=== PATIENT | female | born 1985 | race Caucasian/White ===

== ENCOUNTER 2020-06-02 03:15 | Inpatient (IN) | payer MEDICAID, SELFPAY ==
[2020-06-02] VITALS (80 sets, daily range): BP systolic 114–187; BP diastolic 62–101; PULSE 62–97; RESP 16–18; TEMP 36.3–36.9; O2SAT 89–100; BMI 33.9
[2020-06-02] MEDS: Lactated Ringers 500 ML 999 ML IV (03:40)
[2020-06-02] MEDS: Mag Hydrox/Al Hydrox/Simeth 30 ML UDC PO (03:57)
[2020-06-02] MEDS: Lactated Ringers 1,000 ML 50 ML IV (04:15)
[2020-06-02 04:18] LABS: Absolute Lymphocyte Count 2.68 X10^3/uL (0.83-4.51); Absolute Neutrophil Count 6.5 X10^3/uL (2.0-7.7); Basophil# 0.03 X10^3/uL; Basophil% 0.3 % (0-1); Eosinophil# 0.56 X10^3/uL; Eosinophils% 5.4 % (0-5); Hematocrit 30.3 % (37-47); Hemoglobin 10.3 g/dL (12.0-15.0); Lymphocyte # 2.68 X10^3/ul (4.0); Lymphocyte % 25.7 % (19-41); Mean Corpuscular Hgb 29.6 pg (27.0-32.0); Mean Corpuscular Volume 87.1 fL (81-99); Mean Platelet Vol. 10.1 fl (6.2-12.0); Monocyte% 5.8 % (0-10); NRBC Flagged by Analyzer 0 % (0-5); Neutrophil # 6.51 X10^3/uL (2.7-7.7); Neutrophil % 62.4 % (47-70); Platelet Count 194 K/mm3 (150-450); RBC Distribution Width CV 12.5 % (11.6-14.6); RBC Distribution Width SD 39.1 fl (35.1-43.9); Red Blood Count 3.48 M/mm3 (4.2-5.4); White Blood Count 10.4 K/mm3 (4.4-11.0)
[2020-06-02] MEDS: Labetalol (Prefilled) 20 MG/4 ML IV (04:24)
--- NOTE | 2020-06-02 04:41 | HP.PCM_ITS ---
History Date of Admission: 06/02/20 Final MICHAEL: 06/24/20 Gestational age: 36 Weeks and 6 Days History of this : This is a 34 year-old, @ 36.6 weeks with SROM at home- in labor. On arrival was found to have elevated BPs- asymptomatic. pt does have h/o PRE E with previous pregnancies- on baby ASA. Allergies No Known Allergies Allergy (Verified 06/02/20 03:40) Home Medications: Home Medications Aspirin [Aspirin, Baby] 81 mg PO DAILY@0800 06/02/20 Vit,Calc76/Iron/Folic [Pnv 29-1 Tablet] 1 ea PO 06/02/20 Smoking Status: Never smoker Alcohol: None Substance Use Type: Sleep Aides Number of Fetus(es): 1 NST - FHR Rate Baby A Baseline: 140 Variability:: Moderate Accelerations:: 15 x 15 Decelerations:: None NST Reactive:: Yes FHR Category:: Category I Uterine Activity:: q2-4 History Past Pregnancies: Past Pregnancies Delivery Date Name GA/ Weeks Outcome Route Wt Sex Labor Length Anesthesia Delivery Location Provider FOB Expected Infant Delivery Method: Spontaneous Vaginal Review of Systems Eyes: Denies: Blurred vision HEENT: Denies: Difficulty Hearing, Hearing Changes Cardiovascular: Denies: Chest Pain Gastrointestinal: Reports: Abdominal Pain Physical Exam Vitals: Vital Signs Temp Pulse BP Pulse Ox 98.3 F 74 147/89 H 99 06/02/20 03:59 06/02/20 04:37 06/02/20 04:36 06/02/20 04:37 General: Alert, Oriented x3 Abdomen: Non Tender, Gravid Neurological: Cranial nerves II-XII grossly intact SILK SCREEN PAINTER: Normal external genitalia Estimated gestational size: Appropriate for gestational size Presentation: Cephalic Cervix Dilation (cm): 1 Effacement (%): 90 Assessment/Plan This is a 34 year-old, @ 36.6 wks- SROM in labor admit to l&D monitor fhr/toco anticipate augmentation if indicated BP- labetalol given responded well- PRE E labs sent. Will hold magnesium for now- BP was normal in office today and asymptomatic- likely elevated from pain.
[2020-06-02 04:59] LABS: Partial Thromboplast Time 23.8 Seconds (24.1-36.2); Prothrombin Time (Protime)PT. 12.7 SECONDS (11.7-14.9)
[2020-06-02 05:08] LABS: AST(SGOT) 18 U/L (15-37); Alanine Aminotransfer ALT/SGPT 15 U/L (13-56); Creatinine, Serum 0.94 mg/dL (0.55-1.02); EST Glomerular Filtration Rate 71 mL/min (>60); Est Glom Filt Rate - Afr Amer 86 mL/min (>60); Uric Acid 4.7 mg/dL (2.6-6.0)
[2020-06-02] MEDS: fentaNYL-bupivacaine (epidural) 100 ML BAG EPIDURAL (05:08)
[2020-06-02] MEDS: Oxytocin 30 units/NS 500 ml 30 UNITS/500 ML IV.SOLN 334 UNITS IV (06:08)
--- NOTE | 2020-06-02 06:17 | PCM.OPRPT ---
Vaginal Delivery Maternal Presentation: Active Labor, Spontaneous Rupture of Membranes Amniotic Membrane Rupture Type: Spontaneous at home Amniotic Fluid Description: Clear Final MICHAEL: 06/24/20 Gestational age: 36 Weeks and 6 Days Date of Procedure: 06/02/20 Pre-Operative Diagnosis: spontaneous ROM, labor Post-Operative Diagnosis: same, live female Surgery/ Procedure Performed: Spontaneous Vaginal Delivery Type of Anesthesia: Epidural Description of Procedure: of live female infant. Good maternal pushing efforts delivered head followed by gentle downward traction for delivery of anterior shoulder. was vigorous and placed on mother's chest for immediate skin the skin. Delayed cord clamping was performed. The placenta was then delivered intact without difficulty. Small oozing noted from the anterior aspect of the cervix at 12:00. A single [id number] suture using a 3-0 rapide. Presentation: Vertex Placental Delivery Description: Spontaneous Placenta Disposition: [facility] Cord Vessel Description: 3 Vessels Cord Entanglement: None Estimated Blood Loss: 250 Infant A gender: Female (1 minute): 9 (5 minute): 10 Episiotomy Description: None Laceration: None - small oozing from anterior aspect of cervix- figure of 8 with 3-0 rapide placed. No laceration appreciated. Medications given after delivery: IV Pitocin Complications: None
[2020-06-02 06:51] LABS: Protein, Urine (Random) 17.7 mg/dL (<11.9); Protein:Creat Ratio 203 mg/g CRE (0-200)
[2020-06-02] MEDS: 0.9% Saline Lock 10 ML Syringe IV (08:44)
--- NOTE | 2020-06-02 11:45 | NURSING ---
Dr. Galeano's nurse called to notify of last 3 BP's 158/89, 142/97, and 154/94.
[2020-06-02] MEDS: Ibuprofen 600 MG Tablet PO ×2 (12:39→20:09)
[2020-06-02] MEDS: Labetalol 200 MG Tablet PO ×2 (12:41→22:17)
--- NOTE | 2020-06-02 12:46 | NURSING ---
Dr. Roy called back to order labetolol 200mg po Q8h start now for BP's. Orders placed in computer per RN and given at this time.
--- NOTE | 2020-06-02 23:05 | NURSING ---
Late entry for 2215: Pt. reports having a headache rated 4/10. States that it's sharp but that it's just an exhaustion headache. Pt. denies blurry vision, spots in vision, epigastric pain, or other symptoms. Pt. reports that she just wants to take a nap. nurse informed.
[2020-06-03 00:30] VITALS: BP 123/67; PULSE 86; RESP 18; TEMP 36.3
[2020-06-03] MEDS: Ibuprofen 600 MG Tablet PO ×3 (02:01→14:39)
[2020-06-03 04:29] VITALS: BP 132/79; PULSE 90; RESP 18; TEMP 36.4
[2020-06-03 06:27] VITALS: BP 135/88; PULSE 68
[2020-06-03] MEDS: Labetalol 200 MG Tablet PO ×2 (06:29→14:28)
[2020-06-03 07:57] VITALS: BP 128/81; PULSE 64; RESP 16; TEMP 36.1
--- NOTE | 2020-06-03 08:10 | PCM.PN.OB ---
Subjective: Patient is doing well this morning. Denies headache, vision changes, right upper quadrant pain. She is ambulating voiding without difficulty. She denies lightheadedness, chest pain, shortness of breath, leg pain. Lochia normal. Breast-feeding. Complaints. Doing regular diet without nausea or vomiting. - Physical Exam Vitals/I&O's: Vital Signs Temp Pulse Resp BP Pulse Ox 96.9 F L 64 16 128/81 H 98 06/03/20 07:57 06/03/20 07:57 06/03/20 07:57 06/03/20 07:57 06/02/20 19:55 Oxygen Delivery Method Room Air Weight: 191 lb 9.307 oz Body Mass Index (BMI) 33.9 Intake and Output for Last 24 Hours 06/01/20 06/02/20 06/03/20 23:59 23:59 23:59 Intake Total 1248.33 / 1248.33 Output Total 550 / 550 Balance 698.33 / 698.33 General: Alert, No apparent distress HEENT: Atraumatic Abdomen: Soft, Non Tender, - - FF Extremities: No edema, No Calf Tenderness Skin: No rashes Neurological: Neuro grossly intact Psych/Mental Status: Normal Affect, Appropriate Current Medications Acetaminophen (Tylenol) 1,000 mg PO Q8H PRN PRN PRN Reason: Pain Score 1-3/10 Bisacodyl (Dulcolax) 10 mg RECTAL UD PRN PRN Reason: If no BM Dibucaine (Dibucaine) 1 applic TOPICAL TID PRN PRN; Protocol PRN Reason: Discomfort Hydrocortisone (Hytone) 1 applic TOPICAL TID PRN PRN; Protocol PRN Reason: Discomfort Ibuprofen (Motrin) 600 mg PO Q6H PRN PRN PRN Reason: Pain Score 1-3/10 Last Admin: 06/03/20 02:01 Dose: 600 mg Documented by: Labetalol HCl (Trandate) 200 mg PO Q8 PILLO Last Admin: 06/03/20 06:29 Dose: 200 mg Documented by: Measles/Mumps/Rubella Vaccine Live (M-M-R Ii) 0.5 ml SC .ONCE ONE Stop: 06/03/20 10:01 Last Admin: 06/02/20 12:13 Dose: 0.5 ml Documented by: Methylergonovine Maleate (Methergine) 0.2 mg IM X1 PRN PRN Reason: Excess bleeding/uterine atony Ondansetron HCl (Zofran) 4 mg IV Q4H PRN PRN PRN Reason: Nausea Oxycodone HCl (Oxyir) 5 - 10 mg PO Q4H PRN PRN PRN Reason: Pain Score 4-10/10 Senna/Docusate Sodium (Senokot-S, Ambar-Colace) 1 - 2 tablet PO DAILY PRN PRN PRN Reason: Constipation Simethicone (Mylicon) 80 mg PO PCHS PRN PRN Reason: Indigestion/Stomach pain Sodium Chloride () 5 - 15 ml IV UD PRN PRN Reason: SALINE FLUSH Last Admin: 06/02/20 08:44 Dose: 10 ml Documented by: Medical Necessity - Tobacco Use Smoking Status: Never smoker Assessment/Plan Pt is day 1 from a vaginal delivery. She has no preeclampsia symptoms. Blood pressures are normal on labetalol. Doing well and desires to go home today. Discussed to continue labetalol at home. Discussed that she will need appointment later this week or early next week for blood pressure check.
--- NOTE | 2020-06-03 08:12 | DCINST_ITS ---
Discharge Diet: No Restrictions Discharge Activity: May Shower, May Take a Tub Bath May resume sexual activity in: 6 weeks Ice area for (Minutes): 15 Weight Bearing Status: Weight bearing as tolerated Call your doctor if you observe: Fever of 101 or Higher, Inability to urinate, Inability to have a bowel movement, Using more than one pad per hour, Shortness of breath, Dizziness, Fainting spells, Chest pain, Increased palpitations (ir regular heartbeat), Calf discomfort, Uncontrolled pain Cleanse incision/area with: Soap & Water Additional Instructions: If you experience any of the following, contact your healthcare provider. * Bleeding that soaks a pad every hour for 2 hours * Fever 100.4 or higher * Unrelieved incision or abdominal pain * Swelling, redness, discharge or bleeding from your incision or episiotomy site * Your incision begins to separate * Problems urinating (including inability to urinate or burning while urinating). * Visual changes * Severe headache * Flu-like symptoms * Pain or redness in one of both of your breasts * Pain, warmth, tenderness or swelling in your legs, especially the calf area * Frequent nausea and vomiting * Symptoms of depression or anxiety If you experience any of the following, call 911 or go to the nearest Emergency Room. * Chest pain * Problems breathing * Seizure activity * Partial or complete paralysis of a body part, slurred speech, weakness or drooping of the face, or a sudden inability to walk or hold your balance Allergies/Adverse Reactions: Allergies No Known Allergies Allergy (Verified 06/02/20 03:40) Medications to take at Discharge Aspirin [Aspirin, Baby] 81 mg PO DAILY@0800 06/02/20 Vit,Calc76/Iron/Folic [Pnv 29-1 Tablet] 1 ea PO 06/02/20 Labetalol [Trandate (Beta Annabel)] 200 mg PO TID #90 tab 06/03/20 Labetalol [Trandate (Beta Annabel)] 200 mg PO TID #90 tab 06/03/20 The following prescriptions were given: Labetalol [Trandate (Beta Annabel)] 200 mg PO TID #90 tab Prescription Printed Labetalol [Trandate (Beta Annabel)] 200 mg PO TID #90 tab Transmission Status: Pending to [facility] [id number] Please Follow Up With: Joanna Elmore MD When: End of this week or early next week for blood pressure check. Then a 6 week visit. Primary Care Physician: Care Physician,No Primary [Primary Care Provider] - Test Results: Test results from this visit will be discussed in further detail at your follow- up appointment, if applicable.
[2020-06-03 14:00] VITALS: BP 141/94; PULSE 60; RESP 16; TEMP 36.3
== END 2020-06-03 16:30 | disposition home or self-care (01) | DRG 560 ==
PROVIDERS: Admitting Provider Obstetrics & Gynecology; Visit Provider Obstetrics & Gynecology
DX: O42.013 Preterm premature rupture of membranes, onset of labor within 24 hours of rupture, third trimester (principal); O60.14X0 Preterm labor third trimester with preterm delivery third trimester, not applicable or unspecified; O16.4 Unspecified maternal hypertension, complicating childbirth; Z3A.36 36 weeks gestation of pregnancy; Z37.0 Single live birth; Z79.82 Long term (current) use of aspirin; Z87.59 Personal history of other complications of pregnancy, childbirth and the puerperium
CPT/HCPCS: 59025; 59050; 82565; 82570; 84156; 84450; 84460; 84550; 85025; 85610; 85730; 86850; 86900; 86901; 87635; 94799; 99218; J7120; A4216; G0378; U0003

== ENCOUNTER 2020-07-23 11:57 | Day surgery (SDC) | payer MEDICAID, SELFPAY ==
[2020-06-02 03:55] VITALS: BMI 33.9
--- NOTE | 2020-07-20 13:10 | PCM.HP.BLA ---
History and Physical Date of Admission: 07/23/20 Joanna Galeano Physician Specialty: TRAINING PROGRAM ASSISTANT H&P Signed Encounter Date: 07/14/2020 Expand AllCollapse All Hide copied text Claudette for details Chelsea Walls is a 35 year old female who presents for pre op for laparoscopic bilateral salpingectomy. Pt denies any concerns today. Pt does not desire further children. Declines other contraceptive options. ? PAST MEDICAL HISTORY PAST MEDICAL HISTORY Diagnosis Date ? Anemia ? ? Asthma ? ? childhood asthma ? Depression ? ? History of pre-eclampsia in prior , currently ? ? Kidney stone ? ? 2007 ? depression ? ? only with last ? PAST SURGICAL HISTORY PAST SURGICAL HISTORY Procedure Laterality Date ? CYSTO W LITHOTRIPSY ? 2006 ? FAMILY HISTORY FAMILY HISTORY Problem Relation Age of Onset ? other (GI issues) Mother ? ? Diabetes Father ? ? Colon Cancer Father ? ? Heart Father ? ? Diabetes Sister ? ? Insulin pump ? No Known Problems Brother ? ? Diabetes Maternal Grandmother ? ? Heart Attack Maternal Grandfather ? ? No Known Problems Paternal Grandmother ? ? No Known Problems Paternal Grandfather ? ? No Known Problems Brother ? ? No Known Problems Brother ? ? No Known Problems Sister ? ? No Known Problems Daughter ? ? No Known Problems Daughter ? ? No Known Problems Daughter ? ? No Known Problems Daughter ? ? No Known Problems Son ? ? SOCIAL HISTORY Social History ? Tobacco Use ? Smoking status: Never Smoker ? Smokeless tobacco: Former User Substance Use Topics ? Alcohol use: No ? Drug use: No ? CURRENT MEDICATIONS Current Outpatient Medications Medication Sig ? VIT/IRON FUMARATE/FA ( VITAMIN ORAL) Take by mouth. ? simethicone, chewable (MYLICON) 80 mg chewable tablet Take 1 tablet by mouth every 6 hours as needed. ? ibuprofen (MOTRIN) 600 mg tablet Take 1 tablet by mouth every 6 hours as needed. ? aspirin, enteric coated (ASPIRIN, ENTERIC COATED) 81 mg EC tablet Take 81 mg by mouth once daily. ? No current facility-administered medications for this visit. ? Allergies As of Date: 07/14/2020 (No Known Allergies) Fully Assessed 07/14/2020 ? ? REVIEW OF SYSTEMS Abdomen: no pain Bladder: no dysuria . Breast: No breast lumps, nipple d/c, overlying skin changes, redness or skin retraction. Expanded ROS: GENERAL: Negative for fever Allergies and current medication updated:Yes ? EXAM: BP 116/84 Wt 174 lb (78.9kg) LMP 09/18/2019 GENERAL: pleasant, female in no apparent distress HEENT: Normocephalic, atraumatic, mucus membranes moist and no lesions NECK: Supple, full range of motion, no adenopathy and thyroid normal DERMATOLOGY: Normal, without lesions, non-icteric and non-hirsute BREAST: soft, non-tender, symmetric, no dominant mass, normal nipple-areolar complex, no lymphadenopathy and no nipple discharge ABDOMEN: soft, non-tender and no masses PELVIC: external genitalia normal, normal Bartholin's glands, urethra, [place]'s glands, no vulvar lesions, no cervical lesions, good vaginal support, physiologic discharge present, normal appearing perineal body and perianal region BIMANUAL: uterus normal size, shape and consistency, no adnexal masses and non-tender NEURO: alert and oriented x3,exam grossly non-focal EXTREMITIES: normal ? ASSESSMENT AND PLAN: Encounter Diagnosis ? ? ICD-10-CM ? 1. care and examination Z39.2 ? ? 2. Laparoscopic Bilateral salpingectomy scheduled 3. Pt has been counseled on risks/benefits and alternatives of surgery including but not limited to anesthesia, bleeding, infection, injury to pelvic structures including bowel, bladder, ureters and vessels. Pt wishes to proceed with surgery at this time. 4. COVID testing reviewed 5. Post op meds given ? Joanna Elmore MD ? Office Visit on 07/14/2020 Procedure Criteria Procedure Type: Elective COVID Risk Discussion: The surgeon/proceduralist and patient have discussed in detail the risk of exposure to and/or potential harm posed by the COVID-19 virus with having a surgery/procedure at this time versus the risk of delaying the surgery/procedure. It is not possible to know either the risk of delaying the surgery or procedure or chance of getting an infection with perfect accuracy, but a joint decision was made between the patient and the surgeon/proceduralist to proceed at this time with the scheduled surgery/procedure as indicated on the consent form.
[2020-07-23 12:16] VITALS: BP 120/76; PULSE 57; RESP 16; TEMP 36.2; O2SAT 100; BMI 31.6
[2020-07-23] MEDS: Lactated Ringers 1,000 ML 100 ML IV (12:22)
[2020-07-23 12:28] LABS: Hematocrit 37.1 % (37-47); Mean Corp Hgb Conc 32.3 g/dL (32-36); Mean Corpuscular Hgb 28.9 pg (27.0-32.0); Mean Corpuscular Volume 89.4 fL (81-99); Mean Platelet Vol. 9.8 fl (6.2-12.0); Platelet Count 290 K/mm3 (150-450); RBC Distribution Width CV 12.1 % (11.6-14.6); RBC Distribution Width SD 39.2 fl (35.1-43.9); Red Blood Count 4.15 M/mm3 (4.2-5.4); White Blood Count 7.8 K/mm3 (4.4-11.0)
--- NOTE | 2020-07-23 12:30 | PCM.DC.TUB ---
Discharge Diet: No Restrictions, - - Increase fluid intake for 48 hours. Discharge Activity: Return to Normal Activity, May Drive - when you are no longer taking narcotic pain medications., May Shower, May Take a Tub Bath - in 7 days., - - Ambulate often the next week after surgery. Additional Activity Instructions:: Nothing in the vagina for the next 5 days. Call your doctor if your incision/area has: Continuous Slow Oozing, Sudden Increased Bleeding, Increased Pain/ Swelling, Increased Redness, Foul Smelling Discharge, Swelling at the incision site Call your doctor if you observe: Fever of 101 or Higher Allergies/Adverse Reactions: Allergies No Known Allergies Allergy (Verified 07/23/20 12:01) Medications to take at Discharge Vit,Calc76/Iron/Folic [Pnv 29-1 Tablet] 1 ea PO DAILY 06/02/20 Orders to be completed after discharge: ,Urine Time Frame: 07/23/20, Facility: [facility], Location: Laboratory Primary Care Physician: RUBA CONWAY [Other] Test Results: Test results from this visit will be discussed in further detail at your follow-up appointment, if applicable. Please Follow Up With: Joanna Elmore MD - as scheduled in 2 weeks
[2020-07-23 12:44] LABS: Internal QC Validated? YES +Cl - CLEAR BKGD; Pregnancy, Urine Negative Negative
--- NOTE | 2020-07-23 13:44 | PCM.OPRPT ---
Report of Operation Date of Procedure: 07/23/20 - start time 1402/ end [id number] Pre-Operative Diagnosis: desires sterilization Post-Operative Diagnosis: same Surgery/Procedure Performed:: laparoscopic bilateral salpingectomy mastercam programmer: Pako Anguiano/nii encarnacion Type of Anesthesia:: General Special Medications: 0.5% marcaine Specimen's removed: bilateral fallopian tubes Drains: none Estimated Blood Loss (mL): <5cc Fluids Replaced: 700 Description of Procedure: After informed consent was obtained patient was taken to the operating room she was placed in supine position she was given anesthesia. She was then placed in the [facility] stirrups and she was prepped and draped in normal sterile fashion. Bladder was drained prior to the start of procedure. At this time attention was turned to the vaginal portion where weighted speculum placed at posterior fornix vagina single-tooth tenaculum was used to gently grasp the anterior lip of the cervix. uterus was gently sounded to approximately 9 cm. Uterine manipulator was placed without difficulty. Legs then placed in parallel with the abdomen the tenaculum and the weighted speculum were removed. 2 towel clamps were placed at level of umbilicus. Marcaine was injected infraumbilical and a small incision was made. The 5 mm trocar was placed under direct visualization. CO2 gas was used to insufflate the intra-abdominal cavity. Upon inspection no gross abnormalities appreciated- the uterus tubes and ovaries appeared to be normal. At this time then the LLQ and RLQ ports were placed First Marcaine was injected and small incision was made a knife and the 5 mm trocars were placed. At this time then tubes were traced back to the fimbriated ends. Ligasure was used to coagulate and ligate along mesosalpinx bilaterally until tubes removed completely. Good hemostasis was appreciated. At this time procedure was deemed complete successful. The gas was desufflated on from the intra-abdominal cavity. The trochars were removed. Skin was closed using 4-0 Monocryl in a subcutaneous fashion. Dermabond glue was placed. Instrument lap and needle counts were correct ?2. The uterine manipulator was removed. Vaginal sweep was performed it was negative. There were no complications anticipated normal postoperative course for this patient. there were no residents available- i performed the entire procedure Grafts/Implants Used: none - Complications none - Admit VTE Documentation VTE Present on Admission: Yes VTE Mechan Device Prophylaxis: SCD's VTE Pharm Prophylaxis ordered?: No
--- NOTE | 2020-07-23 13:45 | FALS_PTH ---
PATIENT: SERA BONNER LOC: [facility] [place] U#:[id number] AGE/SX: 35/F ROOM: RE07/23/[address]: Dr. Joanna Elmore, MDDOB: 1985 BED: DIS: 07/23/2020 SPEC #: [id number] RECD: 07/23/20 15:28 STATUS: NIA JOSE #: [id number] AUDREY: 07/23/20 13:[address]: Joanna Elmore DEPT: SURGICAL PATHOLOGY RECD BY: Toro Beasley Tissues: Fallopian tube Procedures: Surgery Specimen Level II HEADER OPERATION: Laparoscopic salpingectomy PRE-OP DIAGNOSIS: Sterilization TISSUE SUBMITTED: Bilateral fallopian tubes MICROSCOPIC DIAGNOSIS Right and left fallopian tubes, bilateral salpingectomies: Two complete segments of fallopian tubes with no pathologic change. AM:jose ramon 07/27/20 MICROSCOPIC DESCRIPTION Slides are reviewed. GROSS DESCRIPTION Received in fixative is one container labeled with the patient's name and designated bilateral fallopian tubes. The specimen consists of bilateral fallopian tubes including fimbrial ends measuring 5.5 cm in length and 0.7 cm in diameter and 4 cm in length and 0.5 cm in diameter. Sections reveal unremarkable cut surfaces. The fallopian tubes are not identified as right or left. Ham Stripper sections are submitted in two cassettes with each cassette containing one fallopian tube. / SJ:jose ramon 07/24/20 TC:4 [facility]: [id number] x2
[2020-07-23] MEDS: Bupivacaine Mpf 0.5% 30 ML VIAL (14:02)
[2020-07-23 14:31] VITALS: BP 120/76; BP 144/96; PULSE 77; RESP 16; TEMP 36.3; O2SAT 99
[2020-07-23 14:45] VITALS: BP 120/76; BP 135/84; PULSE 55; RESP 16; O2SAT 100
[2020-07-23 15:00] VITALS: BP 120/76; BP 124/82; PULSE 55; RESP 16; O2SAT 96
[2020-07-23 15:15] VITALS: BP 112/77; BP 120/76; PULSE 51; RESP 16; TEMP 36.2; O2SAT 97
[2020-07-23 15:46] VITALS: BP 118/72; BP 120/76; PULSE 53; RESP 16; TEMP 36.1; O2SAT 97
== END 2020-07-23 15:40 | disposition home or self-care (01) ==
LOC: SDC 11:58 → AC 12:00
PROVIDERS: Anesthesiology; Referring Provider Obstetrics & Gynecology; Visit Provider Obstetrics & Gynecology
PROC: (CPT 58661; principal; 2020-07-23 13:30)
DX: Z30.2 Encounter for sterilization (principal); Z11.59 Encounter for screening for other viral diseases; Z79.82 Long term (current) use of aspirin
CPT/HCPCS: 00840; 58661; 36415; 81025; 85027; 87635; 88302; C9803; J7120; J2405; U0003